=== PATIENT | male | born 1955 | race Caucasian/White ===

== ENCOUNTER 2023-11-04 08:18 | Inpatient (IN) | payer BC, MEDICARE ==
[2023-11-04] MEDS ORDERED: Melatonin 3 MG Tab PO PRN (15:01)
[2023-11-04] MEDS ORDERED: Acetaminophen 650 MG Supp RECTAL PRN (15:01)
[2023-11-04] MEDS ORDERED: Insulin Lispro 100 Unit/ML 3 ML KwikPen SUBCUT ONE (18:02)
[2023-11-04] MEDS: Saccharomyces Boulardii (Probiotic) 250 MG Cap PO SCH (18:05)
[2023-11-04] MEDS: Isosorbide Dinitrate 10 MG Tab PO SCH (18:06)
[2023-11-04] MEDS: Insulin Lispro 100 Unit/ML 3 ML KwikPen SUBCUT SCH (18:06)
[2023-11-04] MEDS: hydrALAZINE 10 MG Tab PO SCH (21:22)
[2023-11-04] MEDS: metroNIDAZOLE 500 MG Tab PO SCH (21:23)
[2023-11-04] MEDS: lamoTRIgine 25 MG Tab PO SCH (21:23)
[2023-11-05] MEDS: Aspirin 81 MG Tab.EC PO SCH (08:42)
[2023-11-05] MEDS: Folic Acid 1 MG Tab PO SCH (08:42)
[2023-11-05] MEDS: Citalopram 20 MG Tab PO SCH (08:42)
[2023-11-05] MEDS: Pantoprazole 40 MG Tab.CR PO SCH (08:43)
[2023-11-05] MEDS: amLODIPine 10 MG Tab PO SCH (08:43)
[2023-11-05] MEDS: Clopidogrel 75 MG Tab PO SCH (08:43)
[2023-11-05] MEDS: Metoprolol Succinate 100 MG Tab.ER PO SCH (08:43)
[2023-11-05] MEDS: Ezetimibe 10 MG Tab PO SCH (08:43)
[2023-11-05] MEDS: Insulin Lispro 100 Unit/ML 3 ML KwikPen SUBCUT SCH ×2 (12:52→17:56)
[2023-11-05] MEDS ORDERED: Glucagon,Human Recombinant 1 MG Vial IM PRN (17:46)
[2023-11-05] MEDS ORDERED: 50% Dextrose in Water 50 ML Syringe IVPUSH PRN (17:46)
[2023-11-05] MEDS: Levofloxacin 750 MG Tab PO SCH (18:03)
[2023-11-06] MEDS: Ergocalciferol (Vitamin D2) 1.25 MG Cap PO SCH (08:47)
[2023-11-06] MEDS: ceFAZolin 2 GM Vial IVPUSH SCH (15:54)
[2023-11-06] MEDS: Sodium Chloride 0.9% 10 ML Syringe FLUSH SCH (16:00)
[2023-11-07] MEDS: ceFAZolin 2 GM Vial IVPUSH SCH (18:30)
[2023-11-10 06:27] LABS: BASOPHILS ABSOLUTE AUTO 0.1 x10-3/uL (0.0-0.3); BASOPHILS PERCENT AUTO 0.9 % (0.3-3.8); EOSINOPHILS ABSOLUTE AUTO 0.3 x10-3/uL (0.0-0.6); EOSINOPHILS PERCENT AUTO 2.5 % (0.1-6.8); HEMATOCRIT 34.8 % (38.3-50.1); HEMOGLOBIN 11.6 g/dL (12.9-17.7); LYMPHOCYTES ABSOLUTE AUTO 1.7 x10-3/uL (0.5-4.5); LYMPHOCYTES PERCENT AUTO 13.7 % (15.8-45.3); MEAN CORPUSCULAR HEMOGLOBIN 31.4 pg (27.0-33.3); MEAN CORPUSCULAR HGB CONC 33.3 g/dL (28.7-35.3); MEAN CORPUSCULAR VOLUME 94.4 fL (80.8-98.7); MEAN PLATELET VOLUME 8.7 fL (6.7-11.0); MONOCYTES ABSOLUTE AUTO 1.3 x10-3/uL (0.0-1.2); MONOCYTES PERCENT AUTO 10.1 % (5.5-15.2); NEUTROPHILS ABSOLUTE AUTO 9.1 x10-3/uL (1.7-6.9); NEUTROPHILS PERCENT AUTO 72.8 % (40.3-71.8); PLATELET COUNT,PLT 200 x10(3)uL (117-477); RED BLOOD CELL COUNT 3.69 x10(6)uL (3.90-5.90); RED CELL DISTRIBUTION WIDTH 14.1 % (12.4-15.0); WHITE BLOOD CELL COUNT,WBC 12.6 x10-3/uL (3.2-10.1)
[2023-11-10 06:36] LABS: A/G RATIO 0.5; ALBUMIN 2.1 g/dL (3.2-4.6); ALKALINE PHOSPHATASE 69 IU/L (56-112); ASPARTATE AMNIOTRANSFERASE,AST 15 IU/L (5-25); BILIRUBIN TOTAL 0.5 mg/dL (0.1-1.3); BLOOD UREA NITROGEN,BUN 56 mg/dL (7-18); CALCIUM 8.5 mg/dL (8.6-10.2); CARBON DIOXIDE,CO2 26 mmol/L (21-32); CHLORIDE,CL 107 mmol/L (100-110); EST CRCL DRUG DOSING (CG) 28.01 mL/min; ESTIMATED GFR 24 mL/min (>60); GLUCOSE RANDOM 105 mg/dL (80-116); POTASSIUM,K 3.9 mmol/L (3.5-5.3); PROTEIN TOTAL,TP 6.7 g/dL (6.0-8.0); SODIUM,NA 144 mmol/L (135-145)
[2023-11-10 06:43] LABS: CREATININE 2.8 mg/dL (0.70-1.30)
[2023-11-10 07:09] LABS: ALANINE AMINOTRANSFERASE,ALT < 6 U/L (12-36)
[2023-11-14] MEDS: Furosemide 40 MG Tab PO ONE (14:48)
[2023-11-15] MEDS: ceFAZolin 2 GM Vial IVPUSH SCH (21:31)
[2023-11-16] MEDS: Acetaminophen 325 MG Tab PO PRN (09:08)
[2023-11-17 06:41] LABS: BASOPHILS ABSOLUTE AUTO 0.1 x10-3/uL (0.0-0.3); BASOPHILS PERCENT AUTO 0.8 % (0.3-3.8); EOSINOPHILS ABSOLUTE AUTO 0.4 x10-3/uL (0.0-0.6); EOSINOPHILS PERCENT AUTO 3.9 % (0.1-6.8); HEMATOCRIT 29.5 % (38.3-50.1); LYMPHOCYTES ABSOLUTE AUTO 1.9 x10-3/uL (0.5-4.5); LYMPHOCYTES PERCENT AUTO 20.1 % (15.8-45.3); MEAN CORPUSCULAR HEMOGLOBIN 31.6 pg (27.0-33.3); MEAN CORPUSCULAR HGB CONC 33.7 g/dL (28.7-35.3); MEAN CORPUSCULAR VOLUME 93.8 fL (80.8-98.7); MEAN PLATELET VOLUME 9.1 fL (6.7-11.0); MONOCYTES ABSOLUTE AUTO 1.2 x10-3/uL (0.0-1.2); MONOCYTES PERCENT AUTO 12.6 % (5.5-15.2); NEUTROPHILS ABSOLUTE AUTO 5.9 x10-3/uL (1.7-6.9); NEUTROPHILS PERCENT AUTO 62.6 % (40.3-71.8); PLATELET COUNT,PLT 145 x10(3)uL (117-477); RED BLOOD CELL COUNT 3.15 x10(6)uL (3.90-5.90); RED CELL DISTRIBUTION WIDTH 14.1 % (12.4-15.0); WHITE BLOOD CELL COUNT,WBC 9.4 x10-3/uL (3.2-10.1)
[2023-11-17 06:52] LABS: A/G RATIO 0.4; ALBUMIN 1.9 g/dL (3.2-4.6); ALKALINE PHOSPHATASE 66 IU/L (56-112); ASPARTATE AMNIOTRANSFERASE,AST 13 IU/L (5-25); BILIRUBIN TOTAL 0.3 mg/dL (0.1-1.3); BLOOD UREA NITROGEN,BUN 80 mg/dL (7-18); BUN/CREATININE RATIO 30.8 (9-20); CALCIUM 8.3 mg/dL (8.6-10.2); CARBON DIOXIDE,CO2 25 mmol/L (21-32); CHLORIDE,CL 110 mmol/L (100-110); EST CRCL DRUG DOSING (CG) 30.17 mL/min; ESTIMATED GFR 27 mL/min (>60); GLUCOSE RANDOM 128 mg/dL (80-116); PROTEIN TOTAL,TP 6.3 g/dL (6.0-8.0); SODIUM,NA 144 mmol/L (135-145)
[2023-11-17 06:56] LABS: ALANINE AMINOTRANSFERASE,ALT < 6 U/L (12-36); CREATININE 2.6 mg/dL (0.70-1.30)
== END 2023-11-17 17:23 | disposition home health service (06) | DRG 948 ==
LOC: FB.MS 12:44
PROVIDERS: ADMIT Internal Medicine; ATTEND Internal Medicine
DX: R53.81 Other malaise (principal); L03.115 Cellulitis of right lower limb; I13.0 Hypertensive heart and chronic kidney disease with heart failure and stage 1 through stage 4 chronic kidney disease, or unspecified chronic kidney disease; I50.22 Chronic systolic (congestive) heart failure; E11.22 Type 2 diabetes mellitus with diabetic chronic kidney disease; M19.90 Unspecified osteoarthritis, unspecified site; G47.30 Sleep apnea, unspecified; E11.621 Type 2 diabetes mellitus with foot ulcer; H54.7 Unspecified visual loss; E11.628 Type 2 diabetes mellitus with other skin complications; N18.32 Chronic kidney disease, stage 3b; E11.42 Type 2 diabetes mellitus with diabetic polyneuropathy; E11.610 Type 2 diabetes mellitus with diabetic neuropathic arthropathy; S92.912A Unspecified fracture of left toe(s), initial encounter for closed fracture; Z79.4 Long term (current) use of insulin; Z79.82 Long term (current) use of aspirin; Z79.02 Long term (current) use of antithrombotics/antiplatelets; Z79.899 Other long term (current) drug therapy; Z87.891 Personal history of nicotine dependence; Z95.5 Presence of coronary angioplasty implant and graft; X58.XXXA Exposure to other specified factors, initial encounter
CPT/HCPCS: 36415; 73660-T3; 80053; 82947; 85025; 97110-GO; 97110-GP; 97116-GP; 97161-GP; 97165-GO; 97530-GO; 97530-GP; 97535-GO; 99305; 99307; 99308; 99315; A9270-GY; J0690; J1815; J3490